=== PATIENT | female | born 1960 | race Two or more races ===

== ENCOUNTER 2017-01-10 01:10 | Inpatient (IN) | payer OTHER ==
[~2017-01-10] VITALS: Ht 165.1 cm; Wt 80.7 kg
--- NOTE | 2017-01-10 01:30 | NUR ---
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 Patient is aaox4, ambulatory, afebrile. No s/s of acute distress. Breathing even and unlabored. VSS. Gowned. Placed on property assessment monitor. Awaiting for er md enriquez.
[2017-01-10] MEDS ORDERED: methylPREDNISolone SOD SUCC 125 MG/2ML VIAL ONE (01:40)
[2017-01-10] MEDS ORDERED: diphenhydrAMINE HCL 50 MG/ML VIAL ONE (01:40)
[2017-01-10] MEDS ORDERED: IV SET PRIMARY 1 EA INFUS.SET MC ONE (01:40)
[2017-01-10] MEDS ORDERED: IV NS 0.9% 1,000 ML ONE (01:40)
--- NOTE | 2017-01-10 01:40 | NUR ---
Dr Kumar at bedside for eval.
--- NOTE | 2017-01-10 01:50 | NUR ---
Started a saline lock on the right ac g20, blood drawn and sent to lab.
[2017-01-10 01:55] LABS: BASOPHILS % (AUTO) 0.2 % (0.0-2.0); EOSINOPHILS # (AUTO) 0.1 /CMM (0.0-0.7); EOSINOPHILS % (AUTO) 1.1 % (0.0-6.0); HEMATOCRIT 46 % (33-45); HEMOGLOBIN 15.3 g/dL (11.5-14.8); LYMPHOCYTES # (AUTO) 2.4 /CMM (0.8-4.8); LYMPHOCYTES % (AUTO) 28.3 % (20.0-44.0); MEAN CORPUSCULAR HEMOGLOBIN 30 PG (26.0-33.0); MEAN CORPUSCULAR HGB CONC 34 g/dl (31.0-36.0); MEAN CORPUSCULAR VOLUME 89 fL (82-100); MONOCYTES # (AUTO) 0.4 /CMM (0.1-1.30); MONOCYTES % (AUTO) 4.5 % (2.0-12.0); NEUTROPHILS # (AUTO) 5.6 /CMM (1.8-8.9); NEUTROPHILS % (AUTO) 65.9 % (43.0-81.0); PLATELET COUNT (AUTO) 203 /CMM (150-450); RDW COEFFICIENT OF VARIATION 12.8 (11.5-15.0); RED BLOOD CELL COUNT(AUTO) 5.14 MIL/uL (4.0-5.2); WHITE BLOOD COUNT (AUTO) 8.6 K/uL (4.3-11.0)
--- NOTE | 2017-01-10 01:59 | NUR ---
Medicated patient as ordered by Dr Kumar.
[2017-01-10] MEDS ORDERED: methylPREDNISolone SOD SUCC 125 MG/2ML VIAL IV ONE (02:00)
[2017-01-10] MEDS ORDERED: IV NS 0.9% 1,000 ML BAG IV ONE (02:00)
[2017-01-10] MEDS ORDERED: diphenhydrAMINE HCL 50 MG/ML VIAL IV ONE (02:00)
[2017-01-10 02:04] LABS: CALCIUM, SERUM 9.2 mg/dL (8.5-10.1); CREATININE 0.8 mg/dL (0.6-1.3)
[2017-01-10] MEDS ORDERED: MORPHINE SULFATE INJ 2 MG/ML DISP.SYRIN IV ONE (02:30)
[2017-01-10] MEDS ORDERED: ONDANSETRON HCL/PF 4 MG/2 ML VIAL IV ONE (02:30)
[2017-01-10] MEDS ORDERED: IV NS 0.9% 250 ML IV ONE ×2 (02:46→08:13)
[2017-01-10] MEDS ORDERED: IOHEXOL-300 100 ML VIAL IV ONE (02:46)
--- NOTE | 2017-01-10 03:02 | NUR ---
patient to ct.
[2017-01-10] MEDS ORDERED: DICL50TA9 PO (04:06)
--- NOTE | 2017-01-10 04:24 | NUR ---
DR ROE PAGEMegha PER DR MACEDO
[2017-01-10] MEDS ORDERED: VANCOMYCIN 1 GM in IV D5W 250 ML IV ONE (04:30)
[2017-01-10] MEDS ORDERED: FLAGYL/NS RTU 500 MG/100 ML PIGGYBACK IV ONE (04:30)
[2017-01-10] MEDS ORDERED: METRONIDAZOLE 500MG/ NS 100ML 100 ML IV ONE (04:41)
[2017-01-10] MEDS ORDERED: IV SET PRIMARY PUMP SET 1 EA INFUS.SET MC ONE ×2 (04:41→08:12)
--- NOTE | 2017-01-10 04:43 | NUR ---
Report given to Dean OLIVAREZ for admission on room 316-2.
--- NOTE | 2017-01-10 05:30 | NUR ---
Transported patient to [facility] 316-2, no incident noted.
[2017-01-10] MEDS ORDERED: ONDANSETRON HCL/PF 4 MG/2 ML VIAL IV PRN (06:30)
[2017-01-10] MEDS ORDERED: HYDROMORPHONE 1 MG/1 ML DISP.SYRIN IV PRN (06:30)
[2017-01-10] MEDS ORDERED: ACETAMINOPHEN 325 MG TABLET PO PRN (06:30)
[2017-01-10] MEDS ORDERED: oxyCODONE/APAP (5/325 MG) 1 UDTAB TABLET PO PRN (06:30)
--- NOTE | 2017-01-10 07:53 | NUR ---
AM RN NOTES RECEIVED PT IN BED, AWAKE, RESTING COMFORTABLY, WITH MILD DISCOMFORT ON LEFT NECK AND FACE AREA, NOT REQUESTING PAIN MEDICATION AT THIS TIME, WILL MONITOR.
[2017-01-10 08:00] VITALS: BP 112/60
[2017-01-10] MEDS ORDERED: VANCOMYCIN 1 GM in IV D5W 250 ML IV SCH (08:00)
[2017-01-10] MEDS ORDERED: SECONDARY IV SET 1 EA INFUS.SET MC ONE (08:12)
[2017-01-10] MEDS ORDERED: CLIN300C97 PO (12:16)
[2017-01-10] MEDS: PIPERACILLIN /TAZOBACTAM 3.375 G in IV D5W 50 ML IV SCH ×2 (12:26→17:19)
[2017-01-10 16:00] VITALS: BP 131/74
--- NOTE | 2017-01-10 17:51 | NUR ---
RN MS NOTES PATIENT IN BED ALERT AND ORIENTED X4, ABLE TO VERBALIZE NEEDS, IV ATB INFUSING AT THIS TIME, RECEIVED DISCHARGE INSTRUCTIONS AND VERBALIZED UNDERSTANDING, PROVIDED ATB PRESCRIPTION, AND MEDICATION LIST, NO S/SX OF DISTRESS, DENIES PAIN OR DISCOMFORT AT THIS TIME, EATING DINNER AT THIS TIME AND TOLERATING WELL, SKIN ASSESSMENT COMPLETED, SKIN INTACT, WILL BE PICKED UP BY SON AFTER ADMINISTRATION OF ANTIBIOTIC.
--- NOTE | 2017-01-10 18:13 | NUR ---
RN MS NOTES PATIENT LEFT THE FACILITY IN STABLE CONDITION, ACCOMPANIED BY SON VIA PRIVATE CAR.
== END 2017-01-10 18:15 | disposition home or self-care (01) | DRG 115 ==
LOC: ER 01:13 → MED 05:26
PROVIDERS: ADMIT Internal Medicine; ATTEND Internal Medicine
DX: K11.21 Acute sialoadenitis (principal)
CPT/HCPCS: 36415; 70487-TC; 70491-TC; 80048-TC; 83605-TC; 85025-TC; 87040-TC; A4606; J1200; J2543; J2930; J3370; J3490; J7030; J7050; J7060; Q9967; Z7610